=== PATIENT | female | born 1950 | race Caucasian/White ===

== ENCOUNTER → 2017-02-06 | Outpatient (CLI) | payer MEDICARE, OTHER ==
[~2017-02-06] MED LIST: AMBIEN PO; ATENOLOL PO; BENICAR20 MG PO; COLACE PO; COREG PO; COUMADIN PO; COUMADIN5 MG PO; HYDROCODON-ACE1 EACH PO; KCL PO; LASIX PO; LORTAB 10/500 T1 TAB PO; MILK OF MAGNESIA PO; MIRALAX17 GM PO; NITROGYLCERIN SUBLINGUAL; NITROSTAT0.4 MG SL; OXYCODONE-ACET1 EACH PO; PLAVIX PO; POTASSIUM CHLO10 ME1 PO; PREDNISONE10 MG PO; PRILOSEC PO; PRILOSEC20 MG PO; SIMVASTATIN40 MG PO; TYLOX 5/500 CAP1 CAP PO; ZANAFLEX4 M1 PO; ZOCOR PO
--- NOTE | ~2017-02-06 | CR219 ---
[facility] A Service of [facility] & [facility] RADIOLOGY TEXT RESULTS PATIENT: ZAC CHAN LOCATION: [facility] : 46 UNIT #: [id number] AGE: [address]: Marva Smith SEX: F ORDER DR: [id number] [address] [address] [id number] O MR#: [id number] Acc #: [id number] NAME: ZAC CHAN : 1950 SEX: F STUDY DATE/TIME: UNIT: [facility] ROOM: STUDY DESCRIPTION: CR Sacrum and Coccyx Min 2 Vie Attending Physician: Marva Smith A.P.R.N. Referring Physician: Marva Smith A.P.R.N. Ordering Physician: Marva Smith A.P.R.N. Primary Care Physician: Marva Smith A.P.R.N. MEDICAL IMAGING REPORT This report is preliminary unless electronic signature is present. EXAM Sacrum and coccyx 02/06/2017 1110 hours HISTORY Patient passed out on 02/02/2017, complaining of pain and swelling over the lower back and tail bone since episode. COMPARISON Bone window images CT abdomen and pelvis 09/04/2015 FINDINGS 2 AP views and a lateral view of the sacrum and coccyx again demonstrate disc height loss and spurring at L5-S1 with facet arthropathy. No definite sacral fracture is seen. The sacroiliac joints are intact. IMPRESSION Negative sacrum and coccyx. No fracture seen. Sacroiliac joints appear symmetric. Dictated by... Blanca Sorto M.D. THIS IS AN ELECTRONICALLY VERIFIED REPORT Blanca Sorto M.D. at 02/07/2017 9:24 AM SMM/to TD: 02/06/2017 20:38 JOB #: [id number] MEDICAL IMAGING REPORT Page 1 of 1
--- NOTE | ~2017-02-06 | CR181 ---
[facility] A Service of [facility] & [facility] RADIOLOGY TEXT RESULTS PATIENT: ZAC CHAN LOCATION: [facility] : 46 UNIT #: [id number] AGE: [address]: Marva Smith SEX: F ORDER DR: [id number] [address] [address] [id number] O MR#: [id number] Acc #: [id number] NAME: ZAC CHAN : 1950 SEX: F STUDY DATE/TIME: 02/06/2017 11:05 UNIT: [facility] ROOM: STUDY DESCRIPTION: CR Lumbar Spine 2 or 3 Views Attending Physician: Marva Smith A.P.R.N. Referring Physician: Marva Smith A.P.R.N. Ordering Physician: Marva Smith A.P.R.N. Primary Care Physician: Marva Smith A.P.R.N. MEDICAL IMAGING REPORT This report is preliminary unless electronic signature is present. EXAM Lumbar spine series, 02/06/2017 at 11:05 hours HISTORY 66-year-old woman complaining of low back pain with pain and swelling at tail bone since passing out on 02/02/2017. COMPARISON 09/04/2015 at 18:20 hours FINDINGS AP and lateral views of the lumbar spine demonstrate mild rightward scoliosis centered at L4. There is degenerative disc disease at L5-S1 with disc height loss and endplate spurring similar to sagittal reconstructed images of CT 09/04/2015. Images of the sacrum and sacroiliac joints are limited by the presence of overlying stool and gas. No definite sacral fracture is seen. IMPRESSION 1. No lumbar fracture or acute malalignment. There is degenerative disc disease at L5-S1 and facet degenerative change L4-5 and L5-S1 similar to sagittal and coronal reconstructed images of CT abdomen and pelvis 09/04/2015. 2. Images of the sacrum and coccyx are limited by overlying stool and gas. Dictated by... Blanca Sorto M.D. THIS IS AN ELECTRONICALLY VERIFIED REPORT Blanca Sorto M.D. at 02/07/2017 9:24 AM JOSE/jaden [facility]. [facility] A Service of [facility] RADIOLOGY TEXT RESULTS PATIENT: ZAC CHAN LOCATION: [facility] : 46 UNIT #: [id number] AGE: [address]: Marva Smith SEX: F ORDER DR: TD: 02/06/2017 20:35 JOB #: [id number] MEDICAL IMAGING REPORT Page 1 of 1
== END | disposition home or self-care (01) ==
LOC: SRAD 10:40
DX: M54.5 Low back pain (principal); M51.37 Other intervertebral disc degeneration, lumbosacral region; M47.896 Other spondylosis, lumbar region; M47.897 Other spondylosis, lumbosacral region
CPT/HCPCS: 72100; 72220

== ENCOUNTER → 2017-02-10 | Outpatient (CLI) | payer MEDICARE ==
--- NOTE | ~2017-02-10 | CT71 ---
[facility] A Service of [facility] / [facility] RADIOLOGY TEXT RESULTS PATIENT: ZAC CHAN LOCATION: [facility] : 46 UNIT #: [id number] AGE: [address]: Marva Smith SEX: F ORDER DR: [id number] [facility] [address]. [place], [place] [address] [id number] O MR#: [id number] Acc #: [id number] NAME: ZAC CHAN : 1950 SEX: F STUDY DATE/TIME: 02/10/2017 8:51 UNIT: [facility] ROOM: STUDY DESCRIPTION: CT Head Wo Contrast Attending Physician: Marva Smith A.P.R.N. Referring Physician: Marva Smith A.P.R.N. Ordering Physician: Marva Smith A.P.R.N. Primary Care Physician: Marva Smith A.P.R.N. MEDICAL IMAGING REPORT This report is preliminary unless electronic signature is present EXAM Noncontrast head CT. HISTORY Headaches after a fall last 8 days ago. COMPARISON Head CT, 10/29/2012. TECHNIQUE Axial noncontrast images were obtained from the skull base to the vertex. This CT exam was performed with one or more of the following radiation dose reduction techniques: automatic exposure control, adjustment of mA and/or kV according to patient size, and iterative reconstruction. FINDINGS Ventricular size and configuration are normal. There is no evidence of acute infarct or hemorrhage. There are no extraaxial fluid collections. No mass lesion or mass effect is seen. There are no skull fractures. IMPRESSION Normal noncontrast head CT. Dictated by... Candida Walker M.D. THIS IS AN ELECTRONICALLY VERIFIED REPORT Candida Walker M.D. at 02/10/2017 5:08 PM WOJCIECH/jenni [facility] A Service [facility] RADIOLOGY TEXT RESULTS PATIENT: ZAC CHAN LOCATION: [facility] : 46 UNIT #: [id number] AGE: [address]: Marva Smith SEX: F ORDER DR: TD: 02/10/2017 11:20 JOB #: [id number] MEDICAL IMAGING REPORT Page 1 of 1 COPY
== END | disposition home or self-care (01) ==
LOC: CCAT 08:21
DX: R51 Headache (principal)
CPT/HCPCS: 70450